=== PATIENT | female | born 1980 | race Caucasian/White ===

== ENCOUNTER → 2025-06-02 | Outpatient (CLI) | payer BC, SELFPAY ==
[2025-06-02 09:28] LABS: Misc Send Out* See Sep Rpt
[2025-06-02 10:39] LABS: Basophils # (Auto) 0.1 Thou/mm3 (0.0-0.2); Basophils % (Auto) 1 % (0-2.5); Eosinophils # (Auto) 0.2 Thou/mm3 (0.0-0.5); Eosinophils % (Auto) 3 % (0-10); Hematocrit 38.9 % (36.0-46.0); Hemoglobin 13.1 g/dL (12.0-16.0); Immature Granulocytes Auto 0.04 Thou/mm3 (0.00-0.00); Lymphocytes # (Auto) 2.0 Thou/mm3 (1.0-4.8); Lymphocytes % (Auto) 28 % (10-50); Mean Corpuscular HGB Conc 33.7 g/dl (31.0-37.0); Mean Corpuscular Hemoglobin 30.0 pg (25.0-35.0); Mean Corpuscular Volume 89 fL (80-100); Monocytes # (Auto) 0.4 Thou/mm3 (0.0-0.8); Monocytes % (Auto) 6 % (0-12); Neutrophils # (Auto) 4.3 Thou/mm3 (1.8-7.7); Neutrophils % (Auto) 62 % (37-80); Nucleated Red Blood Cell # 0.00 Thou/mm3 (0.00-0.00); Nucleated Red Blood Cell % 0 /100 WBC (0); Platelet Count 406 Thou/mm3 (140-440); RDW Standard Deviation 42.8 fL (36.4-46.3); Red Blood Count 4.37 Miln/mm3 (4.00-5.20); White Blood Count 7.0 Thou/mm3 (3.6-11.0)
[2025-06-02 11:04] LABS: Alanine Aminotransferase 16 U/L (10-49); Albumin, Serum 4.5 gm/dL (3.5-5.0); Albumin/Globulin Ratio 1.2 (1.2-2.2); Alkaline Phosphatase 95 U/L (46-116); Anion Gap 7 (7-16); Aspartate Amino Transferase 18 U/L (0-34); BUN/Creatinine Ratio 14 Ratio (12-20); Bilirubin,Total 0.3 mg/dL (0.3-1.2); Blood Urea Nitrogen 11 mg/dL (9-23); Calcium 9.2 mg/dL (8.3-10.6); Calcium (Corrected) 9.2 mg/dL (8.5-10.1); Carbon Dioxide 25.5 mMol/L (20.0-31.0); Chloride 105 mMol/L (98-107); Cholesterol 195 mg/dL (132-200); Creatine Kinase 119 U/L (34-171); Creatinine (Component) 0.8 mg/dL (0.6-1.3); Free T3 4.1 pg/mL (2.3-4.2); Free T4 (Free Thyroxine) 1.34 ng/dL (0.89-1.76); Globulin 3.8 gm/dL (2.3-3.5); Glucose 85 mg/dL (74-106); HDL Cholesterol 56 mg/dL (40-60); Osmolality,Calculated 272 (275-295); Potassium 3.8 mMol/L (3.4-5.1); Sodium 137 mMol/L (136-145); Thyroid Stimulating Hormone 2.68 uIU/mL (0.55-4.78); Total Protein 8.3 gm/dL (5.7-8.2); Triglycerides 62 mg/dL (30-150); Uric Acid 4.4 mg/dL (3.1-7.8); eGFR > 60 See Note
[2025-06-02 11:05] LABS: Ferritin 7 ng/mL (7.3-270.7); Iron 79 mcg/dL (50-170); T4 (Thyroxine) 8.2 mcg/dL (4.5-10.9); Total Iron Binding Capacity 395 mcg/dL (250-425)
[2025-06-02 11:10] LABS: Folate 18.69 ng/mL (>5.38); Follicle Stimulating Hormone 11.06 mIU/mL (See Note); Vitamin B12 941 pg/mL (211-911); Vitamin D 25 Hydroxy Total 36.9 ng/mL (7.3-40.2)
[2025-06-02 11:45] LABS: Glucose Estimated Average 120 mg/dL (80-131); Hemoglobin A1C 5.8 % Hgb (4.8-6.0)
[2025-06-03 16:16] LABS: RA Screen Negative (Negative)
== END | disposition home or self-care (01) ==
PROVIDERS: PCP Nurse Practitioner Family; Referring Provider Naturopath; Visit Provider Naturopath
DX: E03.9 Hypothyroidism, unspecified (principal); B38.0 Acute pulmonary coccidioidomycosis; J32.9 Chronic sinusitis, unspecified; L30.9 Dermatitis, unspecified; L85.3 Xerosis cutis
CPT/HCPCS: 36415; 80053; 82306; 82465; 82533; 82550; 82607; 82670; 82672; 82728; 82746; 82977; 83001; 83002; 83036; 83525; 83540; 83550; 83718; 83721; 84144; 84270; 84403; 84436; 84439; 84443; 84478; 84480; 84481; 84550; 85025; 86038; 86141; 86376; 86430; 86800